=== PATIENT | female | born 1995 | race African-American/Black ===

== ENCOUNTER 2017-09-21 18:26 | Emergency (ER) | payer SELFPAY ==
--- NOTE | 2017-09-21 19:38 | ER Document Report ---
ED Medical Screen (RME) - General Chief Complaint: Abdominal Pain Stated Complaint: CHEST PAIN Time Seen by Provider: 09/21/17 19:25 Notes: RAPID MEDICAL EVALUATION DISCLOSURE I have seen this patient as part of a Rapid Medical Evaluation and, if applicable, placed any initially appropriate orders. The patient will be seen and fully evaluated, including a full history and physical exam, by a provider ( in Main ED or Fast Track) when a room becomes available. 22-year-old female here with complaints of left-sided chest pain shortness of breath lightheadedness that started approximately 2-1/2 hours ago while she was at work walking down the stairs. With these symptoms, she also had some left arm numbness that was very brief and resolved shortly thereafter. She found that the pain was worse with breathing. She immediately sat down and the symptoms resolved shortly thereafter. She does not have any of the symptoms right now. He does have history of heartburn and has been having some chest pains over the past few days but these have been relieved by Rolaids. She has not tried any medication for the symptoms today. Denies history of DVT/PE or family history of same. Denies prolonged immobilization. Does take control but does not know the name of it. EXAM CTAB RRR - Related Data Allergies/Adverse Reactions: No Known Allergies Allergy (Verified 09/21/17 19:31) Past Medical History - Social History Frequency of alcohol use: Occasional Renal/ Medical History: Denies: Hx Peritoneal Dialysis Physical Exam - Vital signs Vitals: Temp Pulse Resp BP Pulse Ox 99.2 F 100 18 105/78 98 09/21/17 18:43 09/21/17 18:43 09/21/17 18:43 09/21/17 18:43 09/21/17 18:43 Course - Vital Signs Vital signs: Temp Pulse Resp BP Pulse Ox 99.2 F 100 18 105/78 98 09/21/17 18:43 09/21/17 18:43 09/21/17 18:43 09/21/17 18:43 09/21/17 18:43
--- NOTE | 2017-09-21 20:02 | RADIOLOGY REPORT (SQ) ---
EXAM DESCRIPTION: CHEST 2 VIEWS COMPLETED DATE/TIME: 09/21/2017 7:54 pm REASON FOR STUDY: CP SOB COMPARISON: None. EXAM PARAMETERS: NUMBER OF VIEWS: two views TECHNIQUE: Digital Frontal and Lateral radiographic views of the chest acquired. RADIATION DOSE: NA LIMITATIONS: none FINDINGS: LUNGS AND PLEURA: No opacities, masses or pneumothorax. No pleural effusion. MEDIASTINUM AND HILAR STRUCTURES: No masses or contour abnormalities. HEART AND VASCULAR STRUCTURES: Heart normal size. No evidence for failure. BONES: No acute findings. HARDWARE: None in the chest. OTHER: No other significant finding. IMPRESSION: NO ACUTE RADIOGRAPHIC FINDING IN THE CHEST. TECHNICAL DOCUMENTATION: JOB ID: [id number] [employer]- All Rights Reserved Reading location - IP/workstation name: [email or web address]
[2017-09-21 20:23] LABS: ABSOLUTE BASOPHILS # (AUTO) 0.1 10^3/uL (0.0-0.2); ABSOLUTE LYMPHOCYTES (AUTO) 1.9 10^3/uL (0.5-4.7); ABSOLUTE MONOCYTES (AUTO) 0.7 10^3/uL (0.1-1.4); ABSOLUTE NEUT (AUTO) 2.2 10^3/uL (1.7-8.2); HEMATOCRIT 40.9 % (36.0-47.0); HEMOGLOBIN 12.8 g/dL (12.0-15.5); LYMPHOCYTES % (AUTO) 38.8 % (13-45); MEAN CORPUSCULAR HEMOGLOBIN 21.5 pg (27.0-33.4); MEAN CORPUSCULAR HGB CONC 31.4 g/dL (32.0-36.0); MEAN CORPUSCULAR VOLUME 69 fl (80-97); MONOCYTES % (AUTO) 14.1 % (3-13); PLATELET COUNT 347 10^3/uL (150-450); RED BLOOD COUNT 5.97 10^6/uL (3.72-5.28); RED CELL DISTRIBUTION WIDTH 15.1 % (11.5-14.0); SEGMENTED NEUTROPHILS % (AUTO) 45.1 % (42-78); TOTAL CELLS COUNTED % (AUTO) 100 %
--- NOTE | 2017-09-21 20:35 | ER Document Report ---
ED General - General Chief Complaint: Abdominal Pain Stated Complaint: CHEST PAIN Time Seen by Provider: 09/21/17 19:25 Mode of Arrival: Ambulatory Information source: Patient Notes: This is a 22-year-old female with no prior medical problems who presents to the emergency room with chest pain and some shortness of breath. 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 Patient has no family history for blood clots (she does have a younger brother and sister). She smokes a few cigarettes a day. She is on oral control. She denies any calf pain or swelling. There is no history of immobilization, previous DVT/PE, hemoptysis or malignancy. - HPI Onset: Just prior to arrival Onset/Duration: Gradual Quality of pain: Dull Severity: Moderate Pain Level: 2 Associated symptoms: Chest pain, Shortness of breath. denies: Fever Exacerbated by: Denies Relieved by: Denies Similar symptoms previously: No Recently seen / treated by doctor: No - Related Data Allergies/Adverse Reactions: No Known Allergies Allergy (Verified 09/21/17 19:31) Past Medical History - General Information source: Patient - Social History Smoking Status: Current Every Day Smoker Cigarette use (# per day): Yes - Few cigarettes a day Chew tobacco use (# tins/day): No Smoking Education Provided: No Frequency of alcohol use: Occasional Drug Abuse: None Lives with: Family Family History: None Patient has suicidal ideation: No Patient has homicidal ideation: No - Medical History Medical History: Negative Renal/ Medical History: Denies: Hx Peritoneal Dialysis Surgical Hx: Negative Review of Systems - Review of Systems Constitutional: denies: Chills, Fever EENT: No symptoms reported Cardiovascular: See HPI Respiratory: See HPI Gastrointestinal: No symptoms reported Genitourinary: No symptoms reported Female Genitourinary: No symptoms reported Musculoskeletal: No symptoms reported Skin: No symptoms reported Hematologic/Lymphatic: No symptoms reported Neurological/Psychological: No symptoms reported Physical Exam - Vital signs Vitals: Temp Pulse Resp BP Pulse Ox 99.2 F 100 18 105/78 98 09/21/17 18:43 09/21/17 18:43 09/21/17 18:43 09/21/17 18:43 09/21/17 18:43 Notes: Physical exam: GENERAL: 22-year-old female, alert and oriented 3, no acute distress HEAD: Atraumatic, normocephalic. EYES: Pupils equal round and reactive to light, extraocular movements intact, sclera anicteric, conjunctiva are normal. ENT: TMs normal, nares patent, oropharynx clear without exudates. Moist mucous membranes. NECK: Normal range of motion, supple without obvious mass or JVD. LUNGS: Breath sounds clear to auscultation bilaterally and equal. No wheezes rales or rhonchi. HEART: Regular rate and rhythm without murmurs, rubs or gallops. ABDOMEN: Soft, normoactive bowel sounds. No tenderness to palpation. No guarding, no rebound. No masses appreciated. EXTREMITIES: Normal range of motion, no pitting or edema. No clubbing or cyanosis. There is no calf pain or swelling.5 NEUROLOGICAL: Cranial nerves II through XII grossly intact. Normal speech, moving all extremities. PSYCH: Normal mood, normal affect. SKIN: Warm, Dry, normal turgor, no rashes or lesions noted. Course - Re-evaluation Re-evalutation: 09/21/17 23:23 Note: Patient was low risk on well's criteria for PE (no symptoms of DVT, heart rate of 100, no immobilization, no previous VT E, no hemoptysis, no malignancy. She did have an elevated d-dimer, so a CTA of the chest was performed which shows no evidence of pulmonary emboli. Currently, she looks comfortable and I have strongly advised her not to smoke given the fact that she is on control pills. I will give her the number of the [facility]. 09/21/17 23:51 - Vital Signs Vital signs: Temp Pulse Resp BP Pulse Ox 99.2 F 100 22 H 118/92 H 100 09/21/17 18:43 09/21/17 18:43 09/21/17 23:38 09/21/17 23:38 09/21/17 22:00 - Laboratory Result Diagrams: 09/21/17 20:07 09/21/17 20:07 Laboratory results interpreted by me: 09/21/17 09/21/17 09/21/17 20:07 20:07 20:07 RBC 5.97 H MCV 69 L MCH 21.5 L MCHC 31.4 L RDW 15.1 H Monocytes % 14.1 H D-Dimer 1.00 H Calcium 10.3 H - Diagnostic Test Radiology reviewed: Image reviewed, Reports reviewed - EKG shows sinus bradycardia with a ventricular rate of 58, borderline LVH (she is thin), no acute ST-T wave changes Discharge - Discharge Clinical Impression: Pleurisy Condition: Stable Disposition: HOME, SELF-CARE Instructions: Pleurisy ([facility]) Additional Instructions: As we discussed, the CTA of the chest showed no evidence of blood clots. There is an inherent risk for blood clots when he is smoking combination with control pills, so I want you to absolutely stop smoking. You can take ibuprofen for the pain. Follow-up in the [facility] which is a free clinic affiliated with the hospital. It may take a little while to get in, so I would call for the next available appointment. In the meantime, if you have worsening pain or shortness of breath or feel that she getting worse, return to the emergency room. Referrals: [facility] [Provider Group] - Follow up as needed (This is the number the free clinic: Call for the next available appointment.)
[2017-09-21 20:44] LABS: ANION GAP 12 (5-19); BLOOD UREA NITROGEN 16 mg/dL (7-20); CALCIUM 10.3 mg/dL (8.4-10.2); CARBON DIOXIDE 29 mmol/L (22-30); CHLORIDE 103 mmol/L (98-107); GLUCOSE 97 mg/dL (75-110); POTASSIUM 4.4 mmol/L (3.6-5.0); SODIUM 144.1 mmol/L (137-145)
--- NOTE | 2017-09-21 23:19 | RADIOLOGY REPORT (SQ) ---
EXAM DESCRIPTION: CT CHEST ANGIOGRAPHY WITHOUT THEN WITH IV CONTRAST CLINICAL HISTORY: 22 years Female, chest pain Comparison: CR, same day. Technique: IV contrast. Coronal and sagittal reformat. 3d reconstruction. This exam was performed according to our departmental dose-optimization program, which includes automated exposure control, adjustment of the mA and/or kV according to patient size and/or use of iterative reconstruction technique.[facility]: Dose Right [facility]: CareDose [facility]: Dose Right [facility]: Teradose 4D [facility]: [employer] LIMITATIONS: None. Findings: No pulmonary embolus. No right ventricular strain. Clear lungs. Inferior neck, axillae, mediastinum, lungs, airway, lymphatics, heart, vasculature, upper abdomen, and musculoskeleton appear unremarkable. Impression: No pulmonary embolus. No acute cardiopulmonary findings.
[2017-09-21 23:45] VITALS: BP 118/92
--- NOTE | 2017-09-22 07:19 | EKG REPORT ---
SEVERITY:- NORMAL ECG - SINUS RHYTHM : Confirmed by: Harsh Knight MD 22-Sep-2017 07:18:47
== END 2017-09-21 23:46 | disposition home or self-care (01) ==
LOC: ER 18:26
DX: R09.1 Pleurisy (principal); R07.9 Chest pain, unspecified; R06.02 Shortness of breath; R00.1 Bradycardia, unspecified; F17.210 Nicotine dependence, cigarettes, uncomplicated; Z82.49 Family history of ischemic heart disease and other diseases of the circulatory system; Z79.3 Long term (current) use of hormonal contraceptives
CPT/HCPCS: 36415; 71046; 71275; 80048; 81025; 84484; 85025; 85379; 93005; 93010; 99285

== ENCOUNTER 2018-05-28 07:55 | Emergency (ER) | payer SELFPAY ==
[2018-05-28] MEDS ORDERED: ONDANSETRON HCL INJ/PF 4 MG/2 ML SDV IV ONE (08:22)
[2018-05-28] MEDS ORDERED: NORMAL SALINE 1000 ML 1,000 ML IV ONE ×2 (08:22→13:31)
[2018-05-28] MEDS ORDERED: ACETAMINOPHEN 325 MG TABLET PO ONE (08:24)
[2018-05-28 08:40] LABS: HEMATOCRIT 41.2 % (36.0-47.0); MEAN CORPUSCULAR HEMOGLOBIN 21.7 pg (27.0-33.4); MEAN CORPUSCULAR HGB CONC 31.4 g/dL (32.0-36.0); MEAN CORPUSCULAR VOLUME 69 fl (80-97); PLATELET COUNT 276 10^3/uL (150-450); RED BLOOD COUNT 5.96 10^6/uL (3.72-5.28); RED CELL DISTRIBUTION WIDTH 15.5 % (11.5-14.0); WHITE BLOOD COUNT 11.8 10^3/uL (4.0-10.5)
[2018-05-28 08:58] LABS: ALANINE AMINOTRANSFERASE 28 U/L (9-52); ALBUMIN 4.6 g/dL (3.5-5.0); ALKALINE PHOSPHATASE 77 U/L (38-126); ANION GAP 11 (5-19); ASPARTATE AMINO TRANSFERASE 37 U/L (14-36); BILIRUBIN,DIRECT 0.2 mg/dL (0.0-0.4); BILIRUBIN,TOTAL 0.3 mg/dL (0.2-1.3); BLOOD UREA NITROGEN 7 mg/dL (7-20); CALCIUM 9.6 mg/dL (8.4-10.2); CARBON DIOXIDE 28 mmol/L (22-30); CHLORIDE 104 mmol/L (98-107); GLUCOSE 96 mg/dL (75-110); POTASSIUM 4.3 mmol/L (3.6-5.0); SODIUM 142.7 mmol/L (137-145); TOTAL PROTEIN 7.9 g/dL (6.3-8.2)
[2018-05-28 09:15] LABS: ABSOLUTE LYMPHOCYTES# (MANUAL) 0.7 10^3/uL (0.5-4.7); ABSOLUTE MONOCYTES # (MANUAL) 1.1 10^3/uL (0.1-1.4); ABSOLUTE NEUTROPHILS# (MANUAL) 9.9 10^3/uL (1.7-8.2); BASOPHILS % (MANUAL) 0 % (0-2); EOSINOPHILS % (MANUAL) 1 % (0-6); LYMPHOCYTES % (MANUAL) 6 % (13-45); MONOCYTES % (MANUAL) 9 % (3-13); SEGMENTED NEUTROPHILS % (MAN) 84 % (42-78); TOTAL CELLS COUNTED 100
[2018-05-28 09:15] LABS: APPEARANCE,URINE CLEAR; BILIRUBIN,URINE NEGATIVE (NEGATIVE); COLOR,URINE STRAW; GLUCOSE, URINE NEGATIVE (NEGATIVE); KETONES,URINE NEGATIVE (NEGATIVE); LEUKOCYTE ESTERASE,URINE NEGATIVE (NEGATIVE); NITRITE,URINE NEGATIVE (NEGATIVE); PROTEIN,URINE NEGATIVE (NEGATIVE); URINE SPECIFIC GRAVITY 1.011; UROBILINOGEN,URINE NEGATIVE mg/dL (<2.0)
[2018-05-28 09:17] LABS: ANISOCYTOSIS SLIGHT; HYPOCHROMASIA 2+; OVALOCYTES SLIGHT; PLATELET COMMENT ADEQUATE; POIKILOCYTOSIS SLIGHT; TARGET CELLS SLIGHT; TOXIC VACUOLATION PRESENT
[2018-05-28] MEDS ORDERED: RINGERS SOLUTION,LACTATED 1,000 ML IV PRN ×2 (09:31)
[2018-05-28] MEDS ORDERED: RINGERS SOLUTION,LACTATED 500 ML IV PRN (09:33)
--- NOTE | 2018-05-28 10:28 | RADIOLOGY REPORT (SQ) ---
EXAM DESCRIPTION: CHEST 2 VIEWS COMPLETED DATE/TIME: 05/28/2018 10:20 am REASON FOR STUDY: cough COMPARISON: None. EXAM PARAMETERS: NUMBER OF VIEWS: two views TECHNIQUE: Digital Frontal and Lateral radiographic views of the chest acquired. RADIATION DOSE: NA LIMITATIONS: [employer]. FINDINGS: LUNGS AND PLEURA: No opacities, masses or pneumothorax. No pleural effusion. MEDIASTINUM AND HILAR STRUCTURES: No masses or contour abnormalities. HEART AND VASCULAR STRUCTURES: Heart normal size. No evidence for failure. BONES: No acute findings. HARDWARE: None in the chest. OTHER: No other significant finding. IMPRESSION: NO ACUTE RADIOGRAPHIC FINDING IN THE CHEST. TECHNICAL DOCUMENTATION: JOB ID: [id number] [employer]- All Rights Reserved Reading location - IP/workstation name: [email or web address]
[2018-05-28] MEDS ORDERED: IBUPROFEN 800 MG TABLET PO ONE (11:02)
--- NOTE | 2018-05-28 11:07 | ER Document Report ---
ED General - General Chief Complaint: Vomiting Stated Complaint: BACK PAIN/VOMITING Time Seen by Provider: 05/28/18 08:31 Notes: Patient is a 23-year-old female presents to the emergency department complaining of generalized back pain left upper quadrant pain and left lower pelvic pain. Patient states she also has generalized body aches, sore throat, cough, congestion, fever, vomits x5 all starting last night. Patient's also complaining of generalized dysuria and vaginal discharge, malodorous and itchy for the last 2 days. Patient states when she coughs and takes a deep breath she has generalized chest tightness. Past medical history: None Medications: None Allergies: None Patient states last menstrual period was 05/18/2018 TRAVEL OUTSIDE OF THE [place] IN LAST 30 DAYS: No - Related Data Allergies/Adverse Reactions: No Known Allergies Allergy (Verified 05/28/18 08:37) Past Medical History - General Information source: Patient - Social History Smoking Status: Current Every Day Smoker Frequency of alcohol use: every weekend Drug Abuse: None Family History: None Patient has suicidal ideation: No Patient has homicidal ideation: No Renal/ Medical History: Denies: Hx Peritoneal Dialysis Review of Systems - Review of Systems Constitutional: See HPI EENT: See HPI Cardiovascular: See HPI Respiratory: See HPI Gastrointestinal: See HPI Genitourinary: See HPI Female Genitourinary: See HPI Musculoskeletal: See HPI Skin: No symptoms reported Hematologic/Lymphatic: No symptoms reported Neurological/Psychological: See HPI, Headaches Physical Exam - Vital signs Vitals: Temp Pulse Resp BP Pulse Ox 101.7 F H 120 H 22 H 123/69 100 05/28/18 07:59 05/28/18 07:59 05/28/18 07:59 05/28/18 07:59 05/28/18 07:59 - Notes Notes: GENERAL: Alert, interacts well. Generally looks unwell HEAD: Normocephalic, atraumatic. EYES: Pupils equal, round, and reactive to light. Extraocular movements intact. ENT: Oral mucosa moist, tongue midline. Nares patent, TM's intact, none rythematous, nonbulging bilaterally. Pharynx erythematous with palatal petechiae noted, tonsils +2 bilaterally with no exudate. NECK: Full range of motion. Supple. Trachea midline. No nuchal rigidity noted LUNGS: Clear to auscultation bilaterally, no wheezes, rales, or rhonchi. No respiratory distress. HEART: tachycardic rate and rhythm. No murmur ABDOMEN: Soft, Non-distended. Bowel sounds present in all 4 quadrants. No McBurney's point tenderness, no Green sign noted. Patient does have left upper quadrant pain and left pelvic pain. EXTREMITIES: Moves all 4 extremities spontaneously. No edema, normal radial and dorsalis pedis pulses bilaterally. No cyanosis. BACK: no cervical, thoracic, lumbar midline tenderness. No saddle anesthesia, normal distal neurovascular exam. NEUROLOGICAL: Alert and oriented x3. Normal speech. cranial nerves II through XII grossly intact. PSYCH: Normal affect, normal mood. SKIN: Warm, dry, normal turgor. No rashes or lesions noted. Patient's pelvic exam does reveal a white malodorous discharge in the cul-de-sac, no cervical motion tenderness noted, no right adnexal tenderness noted, positive left adnexal tenderness noted. Course - Re-evaluation Re-evalutation: 05/28/18 13:25 Patient did initially meet Sirs sepsis criteria. She was treated with a total of 2500 L of fluid. She was also treated multiple times for her fevers. Patient's labs show a leukocytosis of 11.8, hemoglobin and hematocrit are within normal limits, no electrolyte abnormalities, no signs of urinary tract infection. Patient's pelvic exam did reveal bacterial vaginosis and some left adnexal tenderness, ultrasound was negative for torsion. Patient also came back with a positive strep pharyngitis test. Patient was prophylactically treated for gonorrhea and chlamydia in the emergency department as her tests are pending. 05/28/18 13:26 Patient's chest x-ray showed no signs of pneumonia, pneumothorax, rib fracture. Patient states her chest tightness overall feels better after Motrin administration in the emergency department. Patient overall states she feels a lot better. Patient overall looks a lot better, HR down to 104. Discussed close follow-up with primary care provider and return precautions. Patient stable for discharge. - Vital Signs Vital signs: Temp Pulse Resp BP Pulse Ox 99.2 F 120 H 22 H 104/50 L 100 05/28/18 13:12 05/28/18 07:59 05/28/18 13:12 05/28/18 13:12 05/28/18 13:12 - Laboratory Result Diagrams: 05/28/18 08:28 05/28/18 08:28 Laboratory results interpreted by me: 05/28/18 05/28/18 08:28 08:28 WBC 11.8 H RBC 5.96 H MCV 69 L MCH 21.7 L MCHC 31.4 L RDW 15.5 H Seg Neuts % (Manual) 84 H Lymphocytes % (Manual) 6 L Abs Neuts (Manual) 9.9 H AST 37 H Discharge - Discharge Clinical Impression: Strep pharyngitis, Bacterial vaginosis Fever Qualifiers: Fever type: unspecified Qualified Code(s): R50.9 - Fever, unspecified Condition: Stable Disposition: HOME, SELF-CARE Instructions: Dehydration ([facility]), Strep Throat ([facility]), Vaginosis, Bacterial ([facility]) Additional Instructions: As we discussed you have been seen and treated in the emergency department for strep pharyngitis and bacterial vaginosis. You have already been treated for your strep pharyngitis with an intramuscular shot of antibiotics. The bacterial vaginosis must be treated with oral antibiotics. Unfortunately these antibiotics may make you nauseous. Please make sure you take them on a stomach full of food. Please also make sure you do not drink while taking these antibiotics. I have also prescribed you nausea medications just in case. Please make sure you stay well-hydrated alternating Tylenol and Motrin every 3 hours for your body aches and fever control. Please follow-up with your primary care provider in the next 24-48 hours. Please return to the emergency room should you have any other concerning symptoms. Prescriptions: Metronidazole [Flagyl 500 mg Tablet] 500 mg PO BID #14 tablet Ondansetron [Zofran Odt 4 mg Tablet] 1 - 2 tab PO Q4H PRN #15 tab.rapdis PRN Reason: For Nausea/Vomiting Forms: Return to Work
[2018-05-28 11:21] LABS: BACTERIA (WET MOUNT) 4+ BACTERIA SEEN; EPITHELIALS (WET MOUNT) 4+ EPITHELIALS SEEN; T.VAGINALIS (WET MOUNT) NO TRICHOMONAS SEEN; WBCS (WET MOUNT) FEW WBCS SEEN; YEAST (WET MOUNT) NO YEAST SEEN
[2018-05-28] MEDS ORDERED: PENICILLIN G BENZATHINE 1.2 MILLION UNIT/2 ML DISP.SYRIN IM ONE (11:54)
--- NOTE | 2018-05-28 12:30 | RADIOLOGY REPORT (SQ) ---
EXAM DESCRIPTION: U/S NON OB PEL TV W/DOPPLER COMPLETED DATE/TIME: 05/28/2018 12:17 pm REASON FOR STUDY: left pelvic pain COMPARISON: None. TECHNIQUE: Dynamic and static grayscale images acquired of the pelvis via transvaginal approach and recorded on PACS. Additional selected color Doppler and spectral images recorded. LIMITATIONS: None. FINDINGS: UTERUS: Contour normal. No mass. ENDOMETRIAL STRIPE: No focal or generalized thickening. No masses. CERVIX: No nabothian cysts. RIGHT OVARY AND DOPPLER: Normal size. No worrisome masses. Normal arterial vascular flow without evid ence for torsion. LEFT OVARY AND DOPPLER: Normal size. No worrisome masses. Normal arterial vascular flow without evide nce for torsion. FREE FLUID: None noted. OTHER: No other significant finding. MEASUREMENTS: UTERUS: 7.6 x 4.3 x 3.8 cm ENDOMETRIAL STRIPE: 9 mm RIGHT OVARY: 2.9 x 2.3 x 1.6 cm LEFT OVARY: 3.2 x 2.4 x 1.7 cm IMPRESSION: NORMAL TRANSVAGINAL PELVIC ULTRASOUND. TECHNICAL DOCUMENTATION: JOB ID: [id number]- All Rights Reserved Rev-09/15 Reading location - IP/workstation name: [id number]
[2018-05-28] MEDS ORDERED: AZITHROMYCIN 250 MG TABLET PO ONE (12:53)
[2018-05-28 12:54] LABS: CHLAM PCR NOT DETECTED (NOT DETECT); GON PCR NOT DETECTED (NOT DETECT)
[2018-05-28] MEDS ORDERED: CEFTRIAXONE INJ 250 MG VIAL IM ONE (12:54)
[2018-05-28 14:34] VITALS: BP 110/57
== END 2018-05-28 14:15 | disposition home or self-care (01) ==
LOC: ER 07:55
DX: J02.0 Streptococcal pharyngitis (principal); N76.0 Acute vaginitis; B96.89 Other specified bacterial agents as the cause of diseases classified elsewhere; R50.9 Fever, unspecified; M54.9 Dorsalgia, unspecified; R10.12 Left upper quadrant pain; R10.2 Pelvic and perineal pain; R05 Cough; R11.10 Vomiting, unspecified; R30.0 Dysuria; R51 Headache; R07.89 Other chest pain; F17.200 Nicotine dependence, unspecified, uncomplicated; R00.0 Tachycardia, unspecified
CPT/HCPCS: 99284; 96372; 96361; 96374; 36415; 87210; 87880; 85025; 81025; 80053; 81001; 87491; 87591; 71046; 76830; 93976; J0561; J2405; J7030; J7120; J0696